=== PATIENT | female | born 2000 | race American Indian/Alaskan Native ===

== ENCOUNTER 2019-08-29 16:59 | Outpatient (CLI) | payer OTHER, MEDICAID ==
[2019-08-29] MEDS ORDERED: LACTATED RINGERS 500 ML IV ONE (17:25)
[2019-08-29 21:47] VITALS: BP 117/61
== END 2019-08-29 22:05 | disposition home or self-care (01) ==
LOC: TRG 16:59 → APU 17:04 → TRG 22:05
PROVIDERS: ATTEND Obstetrics & Gynecology
DX: Z34.03 Encounter for supervision of normal first pregnancy, third trimester (principal); V49.88XA Car occupant (driver) (passenger) injured in other specified transport accidents, initial encounter; Y93.89 Activity, other specified; Y92.89 Other specified places as the place of occurrence of the external cause; Y99.8 Other external cause status; Z3A.29 29 weeks gestation of pregnancy
CPT/HCPCS: 59025